=== PATIENT | female | born 1990 | race Caucasian/White ===

== ENCOUNTER 2024-01-13 06:29 | Day surgery (SDC) | payer OTHER, SELFPAY ==
[2024-01-13] VITALS (8 sets, daily range): BP systolic 96–104; BP diastolic 43–74; BMI 16.6
== END 2024-01-13 15:38 | disposition home or self-care (01) ==
LOC: GI 06:29
PROVIDERS: ATTENDING PHYSICIAN Internal Medicine Gastroenterology; FAMILY PHYSICIAN Family Medicine
DX: K86.3 Pseudocyst of pancreas (principal); K86.2 Cyst of pancreas; K86.9 Disease of pancreas, unspecified; R10.30 Lower abdominal pain, unspecified
CPT/HCPCS: 43240; 43237; 74330; 76000; C1769; C1874; C2617

== ENCOUNTER → 2024-01-27 11:06 | Outpatient (REF) | payer OTHER, SELFPAY | LOC: HWRAD 11:06 | PROVIDERS: ATTENDING PHYSICIAN Internal Medicine Gastroenterology; FAMILY PHYSICIAN Family Medicine | DX: K86.3 Pseudocyst of pancreas (principal) | CPT/HCPCS: 74160; Q9967 ==

== ENCOUNTER 2024-02-01 06:37 | Day surgery (SDC) | payer OTHER, SELFPAY ==
[2024-02-01 12:56] VITALS: BMI 16.6
[2024-02-01 12:57] VITALS: BP 90/55
[2024-02-01 14:04] VITALS: BP 89/57
[2024-02-01 14:15] VITALS: BP 90/60
[2024-02-01 14:30] VITALS: BP 89/58
== END 2024-02-01 14:43 | disposition home or self-care (01) ==
LOC: SDS 06:37
PROVIDERS: ATTENDING PHYSICIAN Internal Medicine Gastroenterology
DX: Z46.59 Encounter for fitting and adjustment of other gastrointestinal appliance and device (principal); Z97.8 Presence of other specified devices
CPT/HCPCS: 43247

== ENCOUNTER → 2024-03-24 08:12 | Outpatient (REF) | payer OTHER, SELFPAY | LOC: HWRAD 08:12 | PROVIDERS: ATTENDING PHYSICIAN Physician Assistant; FAMILY PHYSICIAN Family Medicine; REFERRING PHYSICIAN Internal Medicine Gastroenterology | DX: K86.3 Pseudocyst of pancreas (principal) | CPT/HCPCS: 74160; Q9967 ==

== ENCOUNTER 2024-05-23 06:14 | Day surgery (SDC) | payer OTHER, SELFPAY ==
[2024-05-23] VITALS (7 sets, daily range): BP systolic 82–102; BP diastolic 52–73; BMI 16.7
== END 2024-05-23 13:35 | disposition home or self-care (01) ==
LOC: GI 06:14
PROVIDERS: ATTENDING PHYSICIAN Internal Medicine Gastroenterology
DX: K86.2 Cyst of pancreas (principal); R93.3 Abnormal findings on diagnostic imaging of other parts of digestive tract; Z87.19 Personal history of other diseases of the digestive system
CPT/HCPCS: 43237

== ENCOUNTER → 2025-10-02 12:05 | Outpatient (REF) | payer OTHER, SELFPAY | LOC: PAVMRI 12:05 | PROVIDERS: ATTENDING PHYSICIAN Internal Medicine Gastroenterology; FAMILY PHYSICIAN Family Medicine | DX: K86.3 Pseudocyst of pancreas (principal) | CPT/HCPCS: 74183; A9575 ==